=== PATIENT | male | born 1940 | race Caucasian/White ===

== ENCOUNTER → 2018-11-08 | Outpatient (CLI) | payer MEDICARE ==
[~2018-11-08] MED LIST: ASPI-496 PO; ASPI325T17 PO; ASPI81TA45 PO; ATOR-2 PO; DIAZ10TA PO; LEVO100T5 PO; MELO15TA24 PO; METO25TA35 PO; OXYC-307 PO; TIZA4TAB PO
== END | disposition home or self-care (01) ==
LOC: STAR 13:17
PROVIDERS: ATTEND Orthopaedic Surgery
DX: M25.511 Pain in right shoulder (principal); Z96.611 Presence of right artificial shoulder joint; Z01.818 Encounter for other preprocedural examination
CPT/HCPCS: 93005